=== PATIENT | female | born 1970 | race Caucasian/White ===

== ENCOUNTER 2024-08-22 07:57 | Outpatient (CLI) | payer OTHER, SELFPAY ==
--- NOTE | ~2024-08-22 | US_ITS ---
EXAMINATION: US abdomen limited DATE: 08/22/2024 08:19 INDICATION: Elevated liver enzymes TECHNIQUE: Multiple grayscale and Doppler ultrasound images of the abdomen were obtained. COMPARISON: None FINDINGS: The pancreatic head and body are normal in appearance. The pancreatic tail is not visualized. Liver has normal contour, with a smooth surface. There is increased parenchymal echogenicity and coarsened echotexture consistent with diffuse hepatic steatosis. No liver lesion identified. No intrahepatic b iliary duct dilation suspected. Portal venous flow was seen in the hepatopetal, normal direction and has normal Doppler waveform. The gallbladder is nonvisualized consistent with reported history of chiara or cholecystectomy. The common bile duct measures 7 mm in diameter which is within normal limits post cholecystectomy. Visual is portions of the right kidney demonstrates normal contour and echogenicity with no hydronephrosis. Visualized proximal inferior vena cava is normal. IMPRESSION: 1. Diffuse hepatic steatosis. 2. Common bile duct measures 7 mm which is within normal limits post cholecystectomy. No intrahepatic biliary ductal dilation. Reviewed, dictated and finalized at location [facility] [employer] IMPRESSION: 1. Diffuse hepatic steatosis. 2. Common bile duct measures 7 mm which is within normal limits post cholecyste ctomy. No intrahepatic biliary ductal dilation.
== END 2024-08-22 07:58 | disposition home or self-care (01) ==
PROVIDERS: PCP Internal Medicine; Visit Provider Internal Medicine
DX: K76.0 Fatty (change of) liver, not elsewhere classified (principal); Z90.49 Acquired absence of other specified parts of digestive tract; R74.8 Abnormal levels of other serum enzymes
CPT/HCPCS: 76705